=== PATIENT | female | born 1965 | race Caucasian/White ===

== ENCOUNTER → 2020-11-25 | Outpatient (CLI) | payer BC ==
[2014-11-30 12:30] VITALS: BP 138/69
[~2020-11-25] MED LIST: CITA20TA9 PO; MULT-208 PO
--- NOTE | 2020-11-25 12:10 | RAD ---
EXAM: ABDOMEN ONE VIEW. HISTORY: Epigastric pain and bloating. COMPARISON: None. FINDINGS: A frontal view of the abdomen is obtained. There are no distended small bowel loops. There is gas distally. Cholecystectomy clips are noted. IMPRESSION: 1. No evidence of obstruction. Electronically signed by: Isa Harrington MD (11/25/2020 12:08 PM) [id number]
== END ==
LOC: DXRAD 09:18
PROVIDERS: ATTEND Specialist
DX: R10.84 Generalized abdominal pain (principal); Z90.49 Acquired absence of other specified parts of digestive tract
CPT/HCPCS: 74018

== ENCOUNTER → 2021-12-16 | Outpatient (CLI) | payer BC ==
[2014-11-30 12:30] VITALS: BP 138/69
--- NOTE | 2021-12-16 16:51 | RAD ---
Bilateral digital screening 2-D and 3-D (tomosynthesis) mammogram: Reason for examination: Routine screening. Comparison is made to previous study dated Bilateral mammograms in CC and oblique projections were obtained with 2-D imaging and 3-D tomosynthes is imaging and reviewed on the workstation. Interpretation was made with the benefit of CAD. Findings: Breast density: Category C. The breasts are heterogeneously dense, which may obscure small masses. There is a 7 mm oval circumscribed mass in the 4:00 position left breast, approximately 2 cm from the nipple at posterior depth. No other evidence for breast mass is seen. There are no malignant appeari ng calcifications or architectural distortion. The retropectoral saline breast implants are unremarka ble. Impression: No evidence of malignancy. ASSESSMENT: BI-RADS 0. Incomplete. Recommendations: Targeted left breast ultrasound. This patient's information has been entered into a reminder system for the patient to be notified wit h the results of her examination and a target date for the next mammogram. Your patient's mammogram demonstrates that she has dense breast tissue (breast density category C or D), which could hide abnormalities, and if she has other risk factors for breast cancer that have bee n identified, she might benefit from supplemental screening tests that may be suggested by you as her ordering physician. Dense breast tissue, in and of itself, is a relatively common condition. Therefo re, this information is not provided to cause undue concern, but rather to raise your awareness and t o promote discussion with your patient regarding the presence of other risk factors, in addition to d ense breast tissue. Electronically signed by: Luica Contreras MD (12/16/2021 4:49 PM) [id number]
== END ==
LOC: MAMMO 11:36
PROVIDERS: ATTEND Specialist
DX: Z12.31 Encounter for screening mammogram for malignant neoplasm of breast (principal)
CPT/HCPCS: 77063; 77067